=== PATIENT | male | born 1960 | race Caucasian/White ===

== ENCOUNTER 2016-07-27 13:12 | Emergency (ER) | payer OTHER ==
[~2016-07-27 13:12] MED LIST: HYDR-2672 PO; PRED20TA PO
[2016-07-27] MEDS ORDERED: IV NORMAL SALINE 1000ML BAG 1,000 ML IV SCH (13:47)
[2016-07-27] MEDS: FENTANYL PF 100 MCG/2 ML VIAL. IV PRN ×4 (13:58→16:11)
[2016-07-27 14:21] LABS: BARBITURATES NEG (NEG); BENZODIAZEPINES NEG (NEG); BILIRUBIN,URINE NEGATIVE (NEG); CANNABINOIDS NEG (NEG); COCAINE NEG (NEG); GLUCOSE,URINE NEGATIVE (NEG); METHADONE NEG (NEG); NITRITE,URINE NEGATIVE (NEG); OPIATES NEG (NEG); PHENCYCLIDINE NEG (NEG); PROTEIN,URINE NEGATIVE (NEG-TRACE)
[2016-07-27 14:22] LABS: ETHANOL, URINE POS (NEG)
[2016-07-27 14:23] LABS: BACTERIA,URINE 0 /HPF (0-FEW); RBC,URINE 0 /HPF (0-2); WBC,URINE 0 /HPF (0-4)
[2016-07-27 14:51] LABS: BASO % 0 % (0-3); EOS % 1 % (0-3); HEMATOCRIT 42.4 % (39.0-53.0); HEMOGLOBIN 14.3 g/dL (13.0-17.5); LYMPH # 1.7 x10^3/uL (1.0-4.8); LYMPH % 16 % (24-48); MEAN CORPUSCULAR HEMOGLOBIN 30 pg (25-35); MEAN CORPUSCULAR HGB CONC 34 g/dL (31-37); MEAN CORPUSCULAR VOLUME 90 fL (79-100); MONO % 9 % (0-9); NEUT % 73 % (31-73); PLATELET COUNT 218 x10^3/uL (140-400); RED BLOOD COUNT 4.69 x10^6/uL (4.30-5.70); RED CELL DISTRIBUTION WIDTH 15.4 % (11.5-14.5)
[2016-07-27 15:02] LABS: INR 1.1 (0.8-1.1); PROTHROMBIN TIME PATIENT 13.7 SEC (11.7-14.0)
[2016-07-27 15:08] LABS: CREATININE 0.8 mg/dL (0.7-1.3); POTASSIUM 3.5 mmol/L (3.5-5.1)
[2016-07-27] MEDS ORDERED: CONTRAST GIVEN MC PRN (15:30)
[2016-07-27 15:38] LABS: NEG OBC FOB NEG; POS OBC FOB POS
[2016-07-27] MEDS ORDERED: IOHEXOL 300 MG/ML 75 ML VIAL IV ONE (15:45)
--- NOTE | 2016-07-27 16:00 | RAD ---
Examination: Ultrasound testis History: History of left testicular pain Comparison: None available Findings: The right testis measures 4.1 x 1.9 x 3.1 cm. The left testis measures 4.1 x 2.1 x 2.9 cm Normal blood flow identified in the right and left testis. Small hydroceles identified in the bilateral scrotal region. Impression: Small bilateral hydroceles.
--- NOTE | 2016-07-27 16:15 | RAD ---
Examination: CT of the abdomen pelvis with IV contrast History: History of abdominal pain after lifting heavy time spent comparison: None available Technique: Axial CT images of the abdomen was performed with IV contrast. Coronal and sagittal reformats are performed PQRS Compliance Statement: One or more of the following individualized dose reduction techniques were utilized for this examination: 1. Automated exposure control 2. Adjustment of the mA and/or kV according to patient size 3. Use of iterative reconstruction technique Findings: The visualized bibasal lungs grossly appears unremarkable No evidence of free air identified in the abdomen There is diffuse decreased attenuation noted throughout the liver likely hepatic steatosis. Coronary artery calcifications identified. Cholecystectomy clips are identified. The visualized spleen, adrenals grossly appears unremarkable. The bilateral kidneys enhance symmetrically. Punctate 3 mm intrarenal collecting system calculus identified in the right kidney. The stomach is mildly distended. Few fluid distended small bowel loops identified in the left mid abdomen, nonspecific The visualized appendix grossly appears unremarkable. There is mild thickened appearance of the wall of the cecum, ascending colon. Feces and gas noted throughout the colon. The urinary bladder is mildly distended. Moderate aortic atherosclerosis The pancreas is atrophic. There is dilated appearance of the pancreatic duct with moderate size calcification in the proximal pancreatic duct region with multiple calcification is identified in the pancreas could be stigmata of chronic pancreatitis or cystic neoplasia of the pancreas is not completely excluded. Moderate aortic atherosclerosis Mild degenerative changes identified in the visualized thoracolumbar spine. No evidence of obvious hernia identified. Impression: 1. No evidence of obvious hernia identified. 2. Mild thickened appearance of the wall of the cecum and ascending colon, nonspecific could be secondary to colitis, however inflammatory fat stranding about the colon is not identified. 3. Punctate intrarenal collecting system calculus identified in the right kidney. 4 . Coarse calcifications identified in the atrophic pancreas with dilated appearing pancreatic duct measuring up to 8 mm in AP dimension could be stigmata of prior chronic pancreatitis or cystic neoplasia of the pancreas. Follow-up nonemergent MR abdomen with MRCP can be considered. 5. Hepatic steatosis.
[2016-07-27 16:55] LABS: ALBUMIN 3.2 g/dL (3.4-5.0); DIRECT BILIRUBIN 0.1 mg/dL (0.0-0.2); TOTAL BILIRUBIN 0.4 mg/dL (0.2-1.0); TOTAL PROTEIN 7.1 g/dL (6.4-8.2)
[2016-07-27 17:08] VITALS: BP 124/66
--- NOTE | 2016-07-27 18:28 | PHYS DOC ---
Past Medical History Past Medical History: Alcoholism, Depression, Pancreatitis, Other Additional Past Medical Histor: L TORN ROTATOR CUFF Past Surgical History: Cholecystectomy Alcohol Use: Heavy Additional Information: "I DRINK A PINT OF WHISKEY A WEEK" Drug Use: None Adult General Chief Complaint Chief Complaint: TESTICULAR PAIN OR INJURY HPI HPI Patient is a 56 year old male who presents with 1 week of bilateral testicle pain and abdominal pain that is constant, crampy, severe. He has associated constipation and has been trying to manually disimpact himself without success. States his symptoms have gradually worsened over the past week. He has dysuria. He denies nausea or vomiting, bloody or dark stools, hematuria, back pain, fever or chills. Review of Systems Review of Systems Constitutional: Denies fever or chills [] Eyes: Denies change in visual acuity, redness, or eye pain [] HENT: Denies nasal congestion or sore throat [] Respiratory: Denies cough or shortness of breath [] Cardiovascular: No additional information not addressed in HPI [] GI: Denies vomiting, bloody stools or diarrhea [] : Denies dysuria or hematuria [] Musculoskeletal: Denies back pain or joint pain [] Integument: Denies rash or skin lesions [] Neurologic: Denies headache, focal weakness or sensory changes [] Endocrine: Denies polyuria or polydipsia [] Current Medications Current Medications Current Medications Medications (Trade) Dose Ordered Sig/[facility] Start Time Stop Time Status Last Admin Dose Admin Fentanyl Citrate 50 mcg 50 mcg PRN Q15MIN PRN 07/27/16 14:00 07/28/16 13:59 07/27/16 16:11 50 MCG Info (Do NOT chart on this entry -- for MONITORING) 1 each PRN DAILY PRN 07/27/16 15:30 07/29/16 15:29 Iohexol (Omnipaque 300 Mg/ml) 75 ml 1X ONCE 07/27/16 15:45 07/27/16 15:46 DC 07/27/16 15:39 75 ML Ketorolac Tromethamine (Toradol) 15 mg 1X ONCE 07/27/16 18:30 07/27/16 18:31 DC 07/27/16 18:34 15 MG Sodium Chloride (Iv Sodium Chloride 0.9% 1000ml Bag) 1,000 ml @ 1,000 mls/hr Q1H 07/27/16 13:47 07/27/16 14:46 DC 07/27/16 13:59 1,000 MLS/HR Allergies Allergies Allergies Coded Allergies Type Severity Reaction Last Updated Verified No Known Drug Allergies 11/15/15 No Physical Exam Physical Exam Constitutional: Well developed, well nourished, appears uncomfortable with mild distress, non-toxic appearance. [] HENT: Normocephalic, atraumatic, bilateral external ears normal, oropharynx moist, no oral exudates, nose normal. [] Eyes: PERRLA, EOMI, conjunctiva normal, no discharge. [] Neck: Normal range of motion, no tenderness, supple. [] Cardiovascular:Heart rate regular rhythm [] Lungs & Thorax: Bilateral breath sounds clear to auscultation [] Abdomen: Bowel sounds normal, soft, moderate general tenderness, no guarding or rebound. Rectal exam with impacted hard stool in vault, light brown stool [] Skin: Warm, dry, no erythema, no rash. [] Back: No tenderness, no CVA tenderness. [] Extremities: No tenderness, ROM intact, no edema. [] Neurologic: Alert and oriented X 3, normal motor function, normal sensory function, no focal deficits noted. [] Psychologic: Affect normal, judgement normal, mood normal. [] Current Patient Data Vital Signs Vital Signs Date Time Temp Pulse Resp B/P Pulse Ox O2 Delivery O2 Flow Rate FiO2 07/27/16 17:08 70 124/66 91 07/27/16 16:14 16 Room Air 07/27/16 13:46 98.5 98.5 Lab Values Laboratory Tests Test 07/27/16 14:03 07/27/16 14:35 07/27/16 15:29 Urine Collection Type Unknown Urine Color Yellow Urine Clarity Clear Urine pH 6.0 Urine Specific [place] 1.010 Urine Protein Negativemg/dL (NEG-TRACE) Urine Glucose (UA) Negativemg/dL (NEG) Urine Ketones (Stick) Negativemg/dL (NEG) Urine Blood Negative (NEG) Urine Nitrite Negative (NEG) Urine Bilirubin Negative (NEG) Urine Urobilinogen Dipstick 1.0mg/dL (0.2 mg/dL) Urine Leukocyte Esterase Negative (NEG) Urine RBC 0/HPF (0-2) Urine WBC 0/HPF (0-4) Urine Bacteria 0/HPF (0-FEW) Urine Mucus Slight/LPF Urine Opiates Screen Neg (NEG) Urine Methadone Screen Neg (NEG) Urine Barbiturates Neg (NEG) Urine Phencyclidine Screen Neg (NEG) Urine Amphetamine/Methamphetamine Neg (NEG) Urine Benzodiazepines Screen Neg (NEG) Urine Cocaine Screen Neg (NEG) Urine Cannabinoids Screen Neg (NEG) Urine Ethyl Alcohol Pos (NEG) White Blood Count 11.0x10^3/uL (4.0-11.0) Red Blood Count 4.69x10^6/uL (4.30-5.70) Hemoglobin 14.3g/dL (13.0-17.5) Hematocrit 42.4% (39.0-53.0) Mean Corpuscular Volume 90fL (79-100) Mean Corpuscular Hemoglobin 30pg (25-35) Mean Corpuscular Hemoglobin Concent 34g/dL (31-37) Red Cell Distribution Width 15.4% (11.5-14.5) H Platelet Count 218x10^3/uL (140-400) Neutrophils (%) (Auto) 73% (31-73) Lymphocytes (%) (Auto) 16% (24-48) L Monocytes (%) (Auto) 9% (0-9) Eosinophils (%) (Auto) 1% (0-3) Basophils (%) (Auto) 0% (0-3) Neutrophils # (Auto) 8.1x10^3uL (1.8-7.7) H Lymphocytes # (Auto) 1.7x10^3/uL (1.0-4.8) Monocytes # (Auto) 1.0x10^3/uL (0.0-1.1) Eosinophils # (Auto) 0.1x10^3/uL (0.0-0.7) Basophils # (Auto) 0.0x10^3/uL (0.0-0.2) Prothrombin Time 13.7SEC (11.7-14.0) Prothrombin Time INR 1.1 (0.8-1.1) PTT 39SEC (24-38) H Sodium Level 148mmol/L (136-145) H Potassium Level 3.5mmol/L (3.5-5.1) Chloride Level 107mmol/L (98-107) Carbon Dioxide Level 28mmol/L (21-32) Anion Gap 13 (6-14) Blood Urea Nitrogen 16mg/dL (8-26) Creatinine 0.8mg/dL (0.7-1.3) Estimated GFR (Cockcroft-Gault) 100.0 Glucose Level 103mg/dL (70-99) H Calcium Level 8.0mg/dL (8.5-10.1) L Total Bilirubin 0.4mg/dL (0.2-1.0) Direct Bilirubin 0.1mg/dL (0.0-0.2) Aspartate Amino Transferase (AST) 68U/L (15-37) H Alanine Aminotransferase (ALT) 66U/L (16-63) H Alkaline Phosphatase 193U/L (46-116) H Total Protein 7.1g/dL (6.4-8.2) Albumin 3.2g/dL (3.4-5.0) L Lipase 45U/L (73-393) L Stool Occult Blood Negative (NEG) Laboratory Tests 07/27/16 14:35 Laboratory Tests 07/27/16 14:35 Radiology/Procedures Radiology/Procedures Ultrasound testicle and scrotum Impression: Small bilateral hydroceles. DICTATED and SIGNED BY: LAYO MAYES MD DATE: 07/27/[address] abdomen and pelvis with IV contrast Impression: 1. No evidence of obvious hernia identified. 2. Mild thickened appearance of the wall of the cecum and ascending colon, nonspecific could be secondary to colitis, however inflammatory fat stranding about the colon is not identified. 3. Punctate intrarenal collecting system calculus identified in the right kidney. 4 . Coarse calcifications identified in the atrophic pancreas with dilated appearing pancreatic duct measuring up to 8 mm in AP dimension could be stigmata of prior chronic pancreatitis or cystic neoplasia of the pancreas. Follow-up nonemergent MR abdomen with MRCP can be considered. 5. Hepatic steatosis. DICTATED and SIGNED BY: LAYO MAYES MD DATE: 07/27/16 0174 Course & Med Decision Making Course & Med Decision Making Pertinent Labs and Imaging studies reviewed. (See chart for details) Workup is unremarkable. He did not have bowel movement after manual disimpaction , but did have success after enema. First enema was administered with immediate release of enema liquid, so second enema was administered with successful bowel movement. Discussed further care at home for constipation. Return precautions given. He understands and agrees with plan. Dragon Disclaimer Dragon Disclaimer This electronic medical record was generated, in whole or in part, using a voice recognition dictation system. Departure Departure Impression: Primary Impression: Abdominal pain Additional Impressions: Testicle pain Constipation Disposition: HOME, SELF-CARE Condition: STABLE Referrals: NO PCP (PCP) Patient Instructions: Constipation, Adult, [id number] Additional Instructions: Take MiraLAX 2-3 times daily as needed for constipation. Drink liquids to stay hydrated. Follow up with your primary care doctor. Return for any concerns. Scripts Polyethylene Glycol 3350 (Miralax)119 Gm [id number] Gm PO DAILY PRN CONSTIPATION # 255 GM Prov:Chetan GUERRERO MD 07/27/16 Problem Qualifiers Primary Impression: Abdominal pain Abdominal location: generalized Qualified Code: R10.84 - Generalized abdominal pain Additional Impressions: Constipation Constipation type: unspecified constipation type Qualified Code: K59.00 - Constipation, unspecified Chetan GUERRERO MD Jul 27, 2016 18:28
[2016-07-27] MEDS ORDERED: POLY119P4 PO (18:29)
[2016-07-27] MEDS ORDERED: KETOROLAC TROMETHAMINE 30 MG/ML SYRINGE. IV ONE (18:30)
== END 2016-07-27 18:54 | disposition home or self-care (01) ==
LOC: ER 13:12
DX: N50.812 Left testicular pain (principal); N50.811 Right testicular pain; K59.00 Constipation, unspecified; R10.9 Unspecified abdominal pain; F32.9 Major depressive disorder, single episode, unspecified; Z90.49 Acquired absence of other specified parts of digestive tract; R30.0 Dysuria; F10.10 Alcohol abuse, uncomplicated; Y90.9 Presence of alcohol in blood, level not specified
CPT/HCPCS: 36415; 74177; 76870; 80048; 80076; 80305; 81001; 82274; 83690; 85027; 85610; 85730; 96361; 96374; 96375; 96376; 99285; J1885; J3010; J7030; Q9967; G0481